=== PATIENT | male | born 1940 | race Caucasian/White ===

== ENCOUNTER 2019-08-09 09:29 | Emergency (ER) | payer MEDICARE, BC ==
[2019-08-09 10:08] VITALS: BP 163/88
[2019-08-09] MEDS ORDERED: Tetan/Diph/Pertus SYR(Tdap)* 0.5 ML SYR(BOOSTRIX) use SYR IM ONE (10:20)
--- NOTE | 2019-08-09 10:27 | UC ---
Skin Complaint HPI - HPI Summary HPI Summary: Patient is a 78yo male presenting with right index finger pain x7 days. States he was working in the garden and when he came inside, he noticed a hole in his finger and that it was bleeding. Since then, it has become painful and swollen. He believes there is something stuck in it. Pain does not radiate. Denies drainage from wound. Denies decreased ROM or sensation. Denies tingling. Notes he needs a tetanus booster. Patient has used alcohol swabs and iodine without symptom relief. Patient denies fever, chills, nausea, and vomiting. - History of Current Complaint Chief Complaint: UCGeneralIllness Stated Complaint: FINGER INJURY Hx Obtained From: Patient Onset/Duration: Sudden Onset, Lasting Days Current Severity: Mild Pain Intensity: 3 Pain Scale Used: 0-10 Numeric Character: Swelling, Redness, Painful - Allergy/Home Medications Allergies/Adverse Reactions: Allergies Allergy/AdvReac Type Severity Reaction Status Date / Time acetaminophen [From Tylenol] Allergy Mild Rash Verified 08/09/19 10:09 MS Erythromycin Allergy Nausea And Verified 05/21/14 08:18 [Erythromycin] Vomiting PMH/Surg Hx/FS Hx/Imm Hx - Surgical History Surgical History: None - Family History Known Family History: Positive: Unknown, Non-Contributory - Social History Alcohol Use: Rare Substance Use Type: None Smoking Status (MU): Never Smoked Tobacco Review of Systems All Other Systems Reviewed And Are Negative: Yes Constitutional: Positive: Negative. Negative: Fever, Chills Skin: Positive: Other - redness and swelling of right index finger Respiratory: Positive: Negative. Negative: Shortness Of Breath, Cough Cardiovascular: Positive: Negative. Negative: Palpitations, Chest Pain Gastrointestinal: Positive: Negative Neurovascular: Negative: Decreased Sensation, Decreased Pulses Musculoskeletal: Negative: Decreased ROM Neurological: Negative: Headache, Paresthesia, Numbness Physical Exam Triage Information Reviewed: Yes Appearance: Well-Appearing, No Pain Distress, Well-Nourished Vital Signs: Initial Vital Signs Temp 97.8 F 08/09/19 10:02 Pulse 88 08/09/19 10:02 Resp 16 08/09/19 10:02 BP 163/88 08/09/19 10:02 Pulse Ox 100 08/09/19 10:02 Vital Signs Reviewed: Yes Eyes: Positive: Conjunctiva Clear ENT: Positive: Hearing grossly normal Neck: Positive: Supple Respiratory Exam: Normal Cardiovascular Exam: Normal Musculoskeletal: Positive: Strength Intact, ROM Intact, Edema @ - minimal edema noted of right index finger Neurological: Positive: Alert Psychological: Positive: Age Appropriate Behavior Skin: Positive: Other - small round 0.5cm scabbed over wound surrounded by erythema noted on palmar surface of right index finger. no fluctuance noted Diagnostics - Radiology right index finger xray Radiology Interpretation Completed By: Radiologist Summary of Radiographic Findings: IMPRESSION: Degenerative changes of the distal interphalangeal joint of the index finger. Course/Dx - Course Course Of Treatment: Discussed with patient that there was nothing found on xray and no sign of abscess. Instructed him to take Keflex as prescribed for the treatment of cellulitis. I told him to keep the area clean and dry and that he may take ibuprofen and/or tylenol as directed for pain relief. She was instructed to follow up with his PCP if symptoms persist. Instructed to go to the ED if he experiences fever, increasing redness and warmth to the area, drainage from the area, or nausea and vomiting. Patient voiced understanding and agreed to the treatment plan. - Diagnoses Provider Diagnosis: Wound cellulitis Discharge ED - Sign-Out/Discharge Documenting (check all that apply): Patient Departure All imaging exams completed and their final reports reviewed: Yes - Discharge Plan Condition: Stable Disposition: HOME Prescriptions: Cephalexin CAP* [Keflex CAP*] 500 mg PO TID #21 cap Patient Education Materials: Cellulitis (ED) Referrals: Alessio Perez MD [Primary Care Provider] - Additional Instructions: As discussed, take Keflex as prescribed for the treatment of skin infection. Keep the area clean and dry. Do not apply anything to wound. Follow up with your primary care physician as listed below if your symptoms persist or worsen. Go to the emergency room if you experience fever, increasing redness and warmth to the area, drainage, or nausea and vomiting. - Billing Disposition and Condition Condition: STABLE Disposition: Home
== END 2019-08-09 11:00 | disposition home or self-care (01) ==
LOC: UCEAST 09:29
DX: L03.011 Cellulitis of right finger (principal); Z23 Encounter for immunization
CPT/HCPCS: 73140; 90471; 90715; 99212; G0463

== ENCOUNTER 2024-11-02 06:51 | Inpatient (IN) ==
[2024-11-02 07:26] LABS: Urine Appearance Clear; Urine Bilirubin Negative (Negative); Urine Blood Negative (Negative); Urine Color Light-Yellow; Urine Glucose Negative (Negative); Urine Ketones Negative (Negative); Urine Nitrite Negative (Negative); Urine Protein Negative (Negative); Urine Specific Gravity 1.015 (1.002-1.030); Urine Urobilinogen Negative (Negative); Urine pH 6.5 (5.0-8.0)
[2024-11-02 07:29] LABS: ABS Eosinophils 0.1 10^3/uL (0.0-0.5); ABS Lymphocytes 0.5 10^3/uL (1.0-4.8); ABS Monocytes 0.7 10^3/uL (0.0-1.1); ABS Neutrophils 8.3 10^3/uL (1.5-7.6); ABS Nucleated RBC 0.01 10^3/ul; Eosinophil % 0.6 %; Hemoglobin 14.1 g/dL (13.2-16.3); Lymphocyte % 5.4 %; Mean Corpuscular Hemoglobin 31.6 pg (27-33); Mean Corpuscular Hgb Conc 34.3 g/dL (31-36); Mean Corpuscular Volume 92.1 fL (80-97); Mean Platelet Volume 6.1 fL (7.5-11.2); Nucleated Red Blood Cells % 0.1 %/100WBC (0.0-0.8); Platelet Count 388 10^3/uL (150-450); Red Blood Count 4.45 10^6/uL (4.06-5.63); Red Cell Distribution Width 13.9 % (12-17); White Blood Count 9.6 10^3/uL (3.6-10.2)
[2024-11-02 08:24] LABS: Albumin 3.8 g/dL (3.5-5.7); Albumin/Globulin Ratio 1.3 (1-3); Calcium 9.7 mg/dL (8.6-10.3); Creatinine, Serum 0.89 mg/dL (0.67-1.17); Potassium 4.1 mmol/L (3.5-5.0); Total Bilirubin 0.7 mg/dL (0.2-1.0); Total Protein 6.8 g/dL (6.4-8.9)
[2024-11-02 09:06] LABS: High Sensitivity Troponin 1 Hr 15 pg/mL (<20)
[2024-11-02] MEDS: Acetaminophen IV 1 GM/100ML 1,000 MG/100 ML BAG IV ONE (09:10)
[2024-11-02] MEDS: Iohexol 350 (CONTRAST) 500 ML MDV IV ONE (09:45)
[2024-11-02 16:59] VITALS: BP 153/73
[2024-11-03] MEDS: Morphine 2 MG/ML SYRINGE IV PRN (09:24)
[2024-11-06 09:39] LABS: Rapid COVID-19 Molecular Undetected (Undetected)
== END 2024-11-06 10:40 | DRG 964 ==
LOC: ED 06:51 → SUATTDRO 14:07 → EDHOLD 14:07 → MED 15:37
PROVIDERS: ADMIT Internal Medicine; ATTEND Student in an Organized Health Care Education/Training Program